=== PATIENT | male | born 1960 | race Two or more races ===

== ENCOUNTER 2019-10-20 17:48 | Emergency (ER) | payer OTHER ==
[2019-10-20 18:22] VITALS: BP 140/75; PULSE 68; TEMP 98; BMI 24.3
[2019-10-20] MEDS ORDERED: KETOROLAC TROMETHAMINE 60 MG/2 ML VIAL IM ONE (19:07)
--- NOTE | 2019-10-20 19:31 | PDOC ---
History of Present Illness - General Chief Complaint: Pain, Acute Stated Complaint: LEG PAIN Time Seen by Provider: 10/20/19 18:38 History Source: Patient Exam Limitations: No Limitations Past History - Past Medical History Allergies/Adverse Reactions: Allergies Allergy/AdvReac Type Severity Reaction Status Date / Time chlorpromazine HCl Allergy Difficulty Verified 10/20/19 18:00 [From Thorazine] Breathing Penicillins Allergy Hives Verified 10/20/19 18:00 vegetables Allergy Vomiting Uncoded 10/20/19 18:00 Home Medications: Ambulatory Orders Unobtainable 05/31/15 Anemia: No Asthma: Yes Cancer: No Cardiac Disorders: No CVA: No COPD: No CHF: No 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") Diabetes: No GI Disorders: No Disorders: No HTN: No Hypercholesterolemia: No Liver Disease: No Psychiatric Problems: Yes (bipolar) Seizures: No (blackouts) Thyroid Disease: No - Surgical History Appendectomy: Yes - Psycho Social/Smoking Cessation Hx Smoking History: Current some day smoker Have you smoked in the past 12 months: Yes Number of Cigarettes Smoked Daily: 20 Information on smoking cessation initiated: No 'Breaking Loose' booklet given: 05/31/15 Hx Alcohol Use: No Drug/Substance Use Hx: No Substance Use Type: Tranquilizers Hx Substance Use Treatment: Yes *Physical Exam - Vital Signs Last Vital Signs Temp Pulse Resp BP Pulse Ox 98 F 68 16 140/75 100 10/20/19 17:48 10/20/19 17:48 10/20/19 17:48 10/20/19 17:48 10/20/19 17:48 - Physical Exam General Appearance: No: Apparent Distress Respiratory/Chest: positive: Lungs Clear, Normal Breath Sounds. negative: Respiratory Distress Cardiovascular: positive: Regular Rhythm, Regular Rate, S1, S2. negative: Murmur Gastrointestinal/Abdominal: positive: Soft. negative: Tender Musculoskeletal: positive: Other (TTP along R lumbar paraspinal muscles, 2+ pedal pulses of RLE, normal color of RLE, no deformity or swelling of joints noted). negative: Decreased Range of Motion Extremity: negative: Pedal Edema, Swelling, Calf Tenderness Integumentary: positive: Normal Color. 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 Unable to pinpoint exact location of pain but is pointing mostly along R buttock /R hip with pain shooting down leg. States he is unable to recall his medical hx well due to his amnesia (which he sustained from trauma in 1999). Patient went to [facility] for evaluation, but states he received nothing there and they kicked him out. States he has been to multiple doctors and has tried multiple different types of meds (unable to recall names due to amnesia), but nothing works. Uses marijuana to help with pain, but did not use marijuana today. Denies recent trauma, sob, cp, abd pain, n/v, urinary symptoms. Chronic R leg pain ?Drug-seeking I-stop reviewed but nothing found Based on PE, no suspicion for DVT, acute arterial occlusion, cauda equina; patient able to ambulate Could possibly be sciatica (patient unable to recall if he has ever had MRI done of his back) Given Toradol Advised f/u with his PCP 10/20/19 19:32 Discharge - Discharge Information Problems reviewed: Yes Clinical Impression/Diagnosis: Chronic leg pain Qualifiers: Laterality: right Qualified Code(s): M79.604 - Pain in right leg; G89.29 - Other chronic pain Condition: Stable Disposition: HOME - Admission No - Additional Discharge Information Prescription Drug Monitoring Program (I-STOP) results: I-STOP reviewed and no issues identified - Follow up/Referral - Patient Discharge Instructions Patient Printed Discharge Instructions: DI for Sciatica Additional Instructions: Thank you for choosing [facility]. It was a pleasure taking care of you. You were referred to primary care clinic for further evaluation of your symptoms Consider MRI of your lower spine Return to the Emergency Department if your symptoms worsen or persist, you have fever, shortness of breath, chest pain, severe abdominal pain, vomiting, weakness of extremities, unable to ambulate or other concerning symptoms. - Post Discharge Activity
[2019-10-20] MEDS ORDERED: KETOROLAC TROMETHAMINE 60 MG/2 ML VIAL ONE (19:39)
== END 2019-10-20 21:38 | disposition home or self-care (01) ==
LOC: JER 17:48
PROC: 3E0233Z Introduction of Anti-inflammatory into Muscle, Percutaneous Approach (ICD-10-PCS; principal; 2019-10-20)
DX: M79.604 Pain in right leg (principal); G89.29 Other chronic pain; J45.909 Unspecified asthma, uncomplicated; R56.9 Unspecified convulsions; Z21 Asymptomatic human immunodeficiency virus [HIV] infection status; F31.9 Bipolar disorder, unspecified; Z88.0 Allergy status to penicillin; Z88.8 Allergy status to other drugs, medicaments and biological substances; Z91.018 Allergy to other foods; R41.3 Other amnesia; F17.210 Nicotine dependence, cigarettes, uncomplicated
CPT/HCPCS: 99282-25

== ENCOUNTER 2022-09-12 14:40 | Inpatient (IN) | payer OTHER ==
[2022-09-12 15:54] VITALS: BMI 22.8
[2022-09-12 16:37] LABS: BASO % 0.2 % (0-2.0); EOS % 0.3 % (0-4.5); HEMATOCRIT 40.5 % (35.4-49); HEMOGLOBIN 13.6 GM/dL (11.7-16.9); LYMPH % 6.6 % (8-40); MCH 29.9 pg (25.7-33.7); MCHC 33.7 g/dl (32.0-35.9); MEAN CELL VOLUME 88.9 fl (80-96); MEAN PLT VOLUME 7.6 fl (7.5-11.1); NEUT % 84.9 % (42.8-82.8); PLATELET COUNT 295 10^3/uL (134-434); RBC 4.56 M/mm3 (4.00-5.60); RDW 13.9 % (11.9-15.9); WHITE BLOOD COUNT 19.8 K/mm3 (4.0-10.0)
[2022-09-12 16:52] LABS: EPI CELLS 3 /uL (0-25.1); HYALINE CASTS 1 /uL (0-3.1); PH,URINE 7.5 (5.0-8.0); URINE APPEARANCE CLOUDY; URINE BACTERIA >9,000 /uL (0-1359); URINE BILIRUBIN NEGATIVE (NEGATIVE); URINE COLOR YELLOW; URINE GLUCOSE (UA) NEGATIVE (NEGATIVE); URINE KETONE NEGATIVE (NEGATIVE); URINE LEUK ESTERASE 3+ (NEGATIVE); URINE NITRITE NEGATIVE (NEGATIVE); URINE PROTEIN 1+ (NEGATIVE); URINE RBC 29 /uL (0-23.9); URINE WBC 1457 /uL (0-25.8)
[2022-09-12 17:03] LABS: ALBUMIN 3.5 g/dl (3.4-5.0); BLOOD UREA NITROGEN 12.8 mg/dL (7-18)
[2022-09-12 17:07] LABS: BILIRUBIN,TOTAL 1.4 mg/dL (0.2-1)
[2022-09-12 17:11] LABS: TOT PROT 7.4 g/dl (6.4-8.2)
[2022-09-12] MEDS ORDERED: SODIUM CHLORIDE 0.9% 1000 ML INFUS.BAG IV ONE (17:30)
[2022-09-12] MEDS ORDERED: CEFTRIAXONE 1,000 MG in DEXTROSE 5%-WATER - 50 ML IVPB ONE (17:35)
[2022-09-12] MEDS ORDERED: CEFTRIAXONE 1 GM/50 ML BAG ONE (17:37)
[2022-09-12] MEDS ORDERED: ASPIRIN 325 MG TABLET PO ONE (20:37)
[2022-09-12] MEDS ORDERED: LIDOCAINE PATCH REMOVAL MC SCH (22:00)
[2022-09-12] MEDS ORDERED: KETOROLAC TROMETHAMINE 30 MG/1 ML VIAL IM ONE (22:08)
[2022-09-12] MEDS: LIDOCAINE 5% TOPICAL PATCH TP SCH (23:34)
[2022-09-13 08:03] LABS: HEMATOCRIT 38.2 % (35.4-49); HEMOGLOBIN 12.4 GM/dL (11.7-16.9); MCH 29.2 pg (25.7-33.7); MCHC 32.5 g/dl (32.0-35.9); MEAN CELL VOLUME 89.7 fl (80-96); MEAN PLT VOLUME 8.1 fl (7.5-11.1); PLATELET COUNT 266 10^3/uL (134-434); RBC 4.26 M/mm3 (4.00-5.60); RDW 13.5 % (11.9-15.9)
[2022-09-13 08:30] LABS: CALCIUM 8.4 mg/dL (8.5-10.1)
[2022-09-13 08:31] LABS: ALBUMIN 2.9 g/dl (3.4-5.0); MAGNESIUM 2.3 mg/dL (1.8-2.4)
[2022-09-13 08:34] LABS: CREATININE 1.1 mg/dL (0.55-1.3); PHOSPHOROUS 2.8 mg/dL (2.5-4.9)
[2022-09-13 08:35] LABS: BILIRUBIN,TOTAL 1.2 mg/dL (0.2-1); TOT PROT 6.3 g/dl (6.4-8.2)
[2022-09-13] MEDS: ENOXAPARIN NA (PORCINE) 30 MG/0.3 ML DISP.SYRIN SQ SCH (09:58)
[2022-09-13] MEDS ORDERED: CEFTRIAXONE 1 GM in DEXTROSE 5%-WATER - 50 ML IVPB SCH (10:00)
[2022-09-13] MEDS: NICOTINE 21 MG/24 HOURS TOPICAL PATCH TD SCH (10:13)
[2022-09-13] MEDS: LIDOCAINE PATCH REMOVAL MC SCH (10:58)
[2022-09-13] MEDS: LIDOCAINE 5% TOPICAL PATCH TP SCH ×2 (10:59→21:42)
[2022-09-13] MEDS: SODIUM CHLORIDE 1,000 ML IV SCH (14:24)
[2022-09-13] MEDS: ACETAMINOPHEN 1000 MG/100 ML BAG IVPB PRN ×2 (14:24→21:34)
[2022-09-14] MEDS: SODIUM CHLORIDE 1,000 ML IV SCH ×2 (01:05→13:46)
[2022-09-14] MEDS: ACETAMINOPHEN 1000 MG/100 ML BAG IVPB PRN (04:51)
[2022-09-14 08:30] LABS: BASO % 0.2 % (0-2.0); EOS % 0.1 % (0-4.5); HEMATOCRIT 36.2 % (35.4-49); HEMOGLOBIN 12.2 GM/dL (11.7-16.9); LYMPH % 10.7 % (8-40); MCH 30.4 pg (25.7-33.7); MCHC 33.7 g/dl (32.0-35.9); MEAN CELL VOLUME 90.1 fl (80-96); MEAN PLT VOLUME 8.2 fl (7.5-11.1); MONO % 10.1 % (3.8-10.2); NEUT % 78.9 % (42.8-82.8); PLATELET COUNT 252 10^3/uL (134-434); RBC 4.02 M/mm3 (4.00-5.60); RDW 13.9 % (11.9-15.9); WHITE BLOOD COUNT 15.3 K/mm3 (4.0-10.0)
[2022-09-14 08:51] LABS: ALBUMIN 2.7 g/dl (3.4-5.0); BLOOD UREA NITROGEN 13.9 mg/dL (7-18); CALCIUM 8.1 mg/dL (8.5-10.1); MAGNESIUM 2.4 mg/dL (1.8-2.4)
[2022-09-14 08:54] LABS: CREATININE 0.9 mg/dL (0.55-1.3)
[2022-09-14 08:56] LABS: TOT PROT 6.1 g/dl (6.4-8.2)
[2022-09-14 08:57] LABS: BILIRUBIN,TOTAL 0.7 mg/dL (0.2-1)
[2022-09-14] MEDS: KETOROLAC TROMETHAMINE 30 MG/1 ML VIAL IVPUSH SCH ×2 (09:09→17:08)
[2022-09-14] MEDS ORDERED: LACTULOSE 20 GM/30 ML UDC (FOR ORAL USE ONLY) PO PRN (09:15)
[2022-09-14] MEDS: NICOTINE 21 MG/24 HOURS TOPICAL PATCH TD SCH (09:51)
[2022-09-14] MEDS: ENOXAPARIN NA (PORCINE) 30 MG/0.3 ML DISP.SYRIN SQ SCH (09:52)
[2022-09-14] MEDS: POLYETHYLENE GLYCOL (HEALTHYLAX) 3350 17 GM PACKET PO SCH ×2 (09:52→22:36)
[2022-09-14] MEDS: LIDOCAINE PATCH REMOVAL MC SCH (09:53)
[2022-09-14] MEDS: DOCUSATE SODIUM 100 MG CAPSULE (FP) PO SCH (22:36)
[2022-09-14] MEDS: LIDOCAINE 5% TOPICAL PATCH TP SCH (22:36)
[2022-09-15] MEDS: KETOROLAC TROMETHAMINE 30 MG/1 ML VIAL IVPUSH SCH (01:56)
[2022-09-15 07:21] LABS: BASO % 0.3 % (0-2.0); EOS % 1.3 % (0-4.5); HEMATOCRIT 34.8 % (35.4-49); HEMOGLOBIN 11.2 GM/dL (11.7-16.9); LYMPH % 16.2 % (8-40); MCH 29.1 pg (25.7-33.7); MCHC 32.1 g/dl (32.0-35.9); MEAN CELL VOLUME 90.4 fl (80-96); MEAN PLT VOLUME 8.4 fl (7.5-11.1); MONO % 11.2 % (3.8-10.2); PLATELET COUNT 251 10^3/uL (134-434); RBC 3.85 M/mm3 (4.00-5.60); RDW 13.6 % (11.9-15.9); WHITE BLOOD COUNT 11.1 K/mm3 (4.0-10.0)
[2022-09-15 07:39] LABS: CALCIUM 8.2 mg/dL (8.5-10.1)
[2022-09-15 07:41] LABS: ALBUMIN 2.4 g/dl (3.4-5.0); BLOOD UREA NITROGEN 18.1 mg/dL (7-18); MAGNESIUM 2.3 mg/dL (1.8-2.4)
[2022-09-15 07:43] LABS: CREATININE 0.9 mg/dL (0.55-1.3)
[2022-09-15 07:44] LABS: TOT PROT 5.5 g/dl (6.4-8.2)
[2022-09-15 07:45] LABS: BILIRUBIN,TOTAL 0.6 mg/dL (0.2-1)
[2022-09-15] MEDS: POLYETHYLENE GLYCOL (HEALTHYLAX) 3350 17 GM PACKET PO SCH ×2 (09:38→21:30)
[2022-09-15] MEDS: ENOXAPARIN NA (PORCINE) 30 MG/0.3 ML DISP.SYRIN SQ SCH (09:39)
[2022-09-15] MEDS: NICOTINE 21 MG/24 HOURS TOPICAL PATCH TD SCH (09:40)
[2022-09-15] MEDS: SODIUM CHLORIDE 1,000 ML IV SCH ×3 (09:42→18:33)
[2022-09-15] MEDS: LIDOCAINE PATCH REMOVAL MC SCH (09:50)
[2022-09-15] MEDS ORDERED: PANTOPRAZOLE 40 MG TABLET PO ONE (15:47)
[2022-09-15] MEDS: DOCUSATE SODIUM 100 MG CAPSULE (FP) PO SCH (21:20)
[2022-09-15] MEDS: LIDOCAINE 5% TOPICAL PATCH TP SCH ×2 (21:21→21:22)
[2022-09-16 03:28] VITALS: RESP 20
[2022-09-16] MEDS: SODIUM CHLORIDE 1,000 ML IV SCH (09:25)
[2022-09-16] MEDS ORDERED: PANTOPRAZOLE 40 MG TABLET PO SCH (10:00)
[2022-09-16 10:39] LABS: BASO % 0.4 % (0-2.0); EOS % 2.4 % (0-4.5); HEMOGLOBIN 11.9 GM/dL (11.7-16.9); LYMPH % 17.5 % (8-40); MCH 29.7 pg (25.7-33.7); MCHC 33.2 g/dl (32.0-35.9); MEAN CELL VOLUME 89.4 fl (80-96); MEAN PLT VOLUME 8.5 fl (7.5-11.1); MONO % 8.2 % (3.8-10.2); NEUT % 71.5 % (42.8-82.8); PLATELET COUNT 268 10^3/uL (134-434); RBC 4.02 M/mm3 (4.00-5.60); RDW 13.5 % (11.9-15.9); WHITE BLOOD COUNT 9.3 K/mm3 (4.0-10.0)
[2022-09-16 11:02] LABS: ALBUMIN 2.7 g/dl (3.4-5.0); BLOOD UREA NITROGEN 11.9 mg/dL (7-18); CALCIUM 8.7 mg/dL (8.5-10.1); MAGNESIUM 2.5 mg/dL (1.8-2.4)
[2022-09-16 11:04] LABS: TOT PROT 6.2 g/dl (6.4-8.2)
[2022-09-16 11:05] LABS: CREATININE 0.8 mg/dL (0.55-1.3)
[2022-09-16 11:07] LABS: BILIRUBIN,TOTAL 0.7 mg/dL (0.2-1)
[2022-09-16] MEDS: POLYETHYLENE GLYCOL (HEALTHYLAX) 3350 17 GM PACKET PO SCH ×2 (11:10→21:52)
[2022-09-16] MEDS: METHOCARBAMOL 500 MG TABLET PO SCH ×3 (11:10→21:52)
[2022-09-16] MEDS: LACTOBACILLUS ACIDOPHILUS 1 TABLET PO SCH (11:10)
[2022-09-16] MEDS: PANTOPRAZOLE SODIUM 40 MG VIAL IVPUSH SCH ×2 (11:11→21:52)
[2022-09-16] MEDS: ENOXAPARIN NA (PORCINE) 30 MG/0.3 ML DISP.SYRIN SQ SCH (11:11)
[2022-09-16] MEDS: NICOTINE 21 MG/24 HOURS TOPICAL PATCH TD SCH ×2 (11:11→11:26)
[2022-09-16] MEDS: LIDOCAINE PATCH REMOVAL MC SCH (11:23)
[2022-09-16] MEDS: DOCUSATE SODIUM 100 MG CAPSULE (FP) PO SCH (21:52)
[2022-09-16] MEDS ORDERED: LIDOCAINE 5% TOPICAL PATCH TP SCH (22:00)
[2022-09-16] MEDS ORDERED: MELATONIN 1 MG TABLET PO ONE (22:46)
[2022-09-17] MEDS: METHOCARBAMOL 500 MG TABLET PO SCH (06:14)
[2022-09-17 07:03] VITALS: BP 120/78; PULSE 85; TEMP 98.3
[2022-09-17] MEDS: SODIUM CHLORIDE 1,000 ML IV SCH (08:00)
[2022-09-17] MEDS: PANTOPRAZOLE SODIUM 40 MG VIAL IVPUSH SCH (10:51)
[2022-09-17] MEDS: POLYETHYLENE GLYCOL (HEALTHYLAX) 3350 17 GM PACKET PO SCH (10:51)
[2022-09-17] MEDS: ENOXAPARIN NA (PORCINE) 30 MG/0.3 ML DISP.SYRIN SQ SCH (10:51)
[2022-09-17] MEDS: LACTOBACILLUS ACIDOPHILUS 1 TABLET PO SCH (10:51)
[2022-09-17] MEDS: NICOTINE 21 MG/24 HOURS TOPICAL PATCH TD SCH (10:51)
[2022-09-17] MEDS: LIDOCAINE PATCH REMOVAL MC SCH (11:01)
[2022-09-17] MEDS ORDERED: LIDOCAINE 5% TOPICAL PATCH TP SCH (12:00)
[2022-09-17] MEDS ORDERED: LIDOCAINE PATCH REMOVAL MC SCH ×2 (12:02→22:00)
== END 2022-09-17 14:01 | disposition home or self-care (01) | DRG 463 ==
LOC: JER 14:40 → OBSVTOIN 17:32 → JERBED 17:32 → J4W 20:11 → J8W 09-16 03:14
PROVIDERS: ADMIT Internal Medicine; ATTEND Nurse Practitioner Family
DX: N30.91 Cystitis, unspecified with hematuria (principal); B96.20 Unspecified Escherichia coli [E. coli] as the cause of diseases classified elsewhere; F12.90 Cannabis use, unspecified, uncomplicated; F17.210 Nicotine dependence, cigarettes, uncomplicated; G89.29 Other chronic pain; H02.409 Unspecified ptosis of unspecified eyelid; H53.2 Diplopia; K59.00 Constipation, unspecified; M25.561 Pain in right knee; M25.562 Pain in left knee; M54.9 Dorsalgia, unspecified; Z59.00 Homelessness unspecified; R31.9 Hematuria, unspecified
CPT/HCPCS: 0241U-QW; 36415; 70450-TC; 71045-TC-FY; 74018-TC-FY; 74176-TC; 76700-TC; 80053; 81003; 83735; 84100; 84484; 85025; 85027; 86140; 87086; 87186; 93005; 93010; 97116-GP; 97161-GP; 99285-25